=== PATIENT | male | born 1945 | race Caucasian/White ===

== ENCOUNTER 2018-05-20 22:22 | Emergency (ER) | payer OTHER ==
[2018-05-20] MEDS ORDERED: OCTYL 2-CYANOACRYLATE 1 EACH TP ONE (22:41)
== END 2018-05-20 23:04 | disposition home or self-care (01) ==
LOC: EDH 22:22
DX: S61.211A Laceration without foreign body of left index finger without damage to nail, initial encounter (principal); Z79.899 Other long term (current) drug therapy; W26.0XXA Contact with knife, initial encounter; Y93.89 Activity, other specified; Y92.89 Other specified places as the place of occurrence of the external cause; Y99.8 Other external cause status
CPT/HCPCS: 12041